=== PATIENT | female | born 1960 | race Caucasian/White ===

== ENCOUNTER 2021-05-15 08:29 | Outpatient (REF) | payer BC, SELFPAY ==
--- NOTE | ~2021-05-15 | MR_ITS ---
MR CERVICAL SPINE WITHOUT CONTRAST CLINICAL INFORMATION: Spinal stenosis. COMPARISON: None available. TECHNIQUE: MRI of the cervical spine was obtained using routine sequences without contrast. FINDINGS: There is a partially imaged leftward convex scoliotic curvature of the thoracic spine. Cervical alignment is maintained. Vertebral body heights are preserved. There is mild to moderate disc volume loss at C4-C5 and C6-C7. Modic type I endplate signal changes at C4-C5. There is bone marrow edema within the left C3 and C4 facets that is most likely degenerative or inflammatory. There is no additional bone marrow edema. There are no acute fractures. Craniocervical junction is unremarkable. Posterior fossa is obscured by the saturation band. Cervical arterial flow voids are maintained. No significant extraspinal soft tissue findings. No cord signal changes. C2-C3: Disc contour normal. No central canal stenosis and no foraminal stenosis. C3-C4: Advanced uncovertebral joint hypertrophy and hypertrophic facet arthropathy result in moderate left-sided foraminal stenosis. No central canal and no right foraminal stenosis. C4-C5: Advanced uncovertebral joint hypertrophy and hypertrophic facet arthropathy result in severe right-sided foraminal stenosis. No central canal and no left foraminal stenosis. C5-C6: Disc osteophyte mildly narrows the central canal. Advanced uncovertebral joint hypertrophy and hypertrophic facet arthropathy result in moderate right-sided foraminal stenosis and mild left-sided foraminal encroachment. C6-C7: Advanced uncovertebral joint hypertrophy and hypertrophic facet arthropathy result in severe bilateral foraminal stenosis. C7-T1: Disc contour normal. No central canal stenosis and no foraminal stenosis. Small shallow central disc protrusion at T2-T3 mildly narrows the central canal and a small inferiorly migrating central disc extrusion at T4-T5 mildly indents the ventral thecal sac. MR/MR cervical spine wo con IMPRESSION: Multilevel cervical spondylosis with advanced spondylitic changes resulting in moderate left C3-C4, severe right C4-C5, moderate right C5-C6, and severe bilateral C6-C7 foraminal stenosis. There is no severe central canal stenosis within the cervical spine. Bone marrow edema within the left C3 and C4 facets is most likely degenerative or inflammatory.
== END 2021-05-15 08:30 | disposition home or self-care (01) ==
LOC: HO.MRI 08:29
PROVIDERS: PCP Internal Medicine; Visit Provider Psychiatry & Neurology Neurology
DX: M48.02 Spinal stenosis, cervical region (principal)
CPT/HCPCS: 72141

== ENCOUNTER 2022-12-17 14:18 | Outpatient (AMB) | payer OTHER, SELFPAY ==
--- NOTE | 2022-12-17 14:46 | MHC.OFFVIS ---
Intake Vital Signs 12/17/22 14:50 Height 5 ft 6 in Weight 143 lb 4 oz BMI 23.1 BP 122/80 Blood Pressure Location Rt brachial Position Sitting Respiration 16 Pulse 82 Pulse Source Pulse Oximeter Pulse Oximetry (%) 93 Oxygen Delivery Method Room Air Intake Visit Reasons: ENP-Poss TIA,Neuropathy,Chr numb-confirmed Intake Note: Pt presents to the office for new patient evaluation s/p TIA on 07/15/22. She reports he had and episode where she went entirely numb on the left side of the body, tingling of her fingertips within 4 hours after receiving her Covid booster shot. She denies any pain. [employer] Required: No Allergies fentanyl Allergy (Severe, Verified 12/17/22 14:56) Vomiting amoxicillin Allergy (Intermediate, Verified 12/17/22 14:56) Hives erythromycin base Allergy (Intermediate, Verified 12/17/22 14:56) Hives Medication List - Last Reconciled 12/17/22 by Unique Randall MD amlodipine 5 mg PO DAILY atorvastatin 80 mg PO QPM bupropion HCl 150 mg PO DAILY dapagliflozin propanediol (Farxiga) 10 mg PO DAILY lorazepam 1 mg PO DAILY PRN metoprolol succinate ER 50 mg PO DAILY nitrofurantoin monohyd/m-cryst 100 mg (Macrobid) 100 mg PO BID HPI HPI Comments History of Present Illness Details 62y/o female comes for evaluation of left sided numbness. 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 She had her Moderna COVID Booster April of 2021 and in 4 hrs she started having numbness and tingling in her left fingers and spread to her her whole left UE. she saw a neurologist and did not have a diagnosis .Now she has numbness in her left UE and her left leg.she denied pain but has some tingling.No back pain, no weakness, no urinary or bowel issues. When the symptoms started in the first 3 weeks she had 3 episodes of sharp pain from leg to her whole spine. SHe has gait issues in AM and late in the day. she uses a cane and has had falls.SHe syas her legs give out. after long hikes she has left leg weakness , she had a possible TIA in June 2022 - she had vertigo and right sided weakness - 1-2 hrs.SHe wnet to ehr her PCP the day [facility] Medical History (Updated 12/17/22 @ 15:33 by Unique Randall MD) Lumbar spondylosis Syrinx of spinal cord Numbness and tingling of left arm and leg HTN (hypertension) Hyperlipidemia Seasonal affective disorder IBS (irritable bowel syndrome) Cholelithiasis CAD (coronary artery disease) Pacemaker Surgical History Previous section Hx of cholecystectomy H/O total hysterectomy H/O heart artery stent Family History Unknown No problems noted. Social History Household Members: Spouse Housing: House Alcohol intake: current Alcohol intake frequency: holidays/special occasions only Cigarette Packs Per Day: 10 Years Smoked: 20 Substance Use Type: Marijuana Substance Use Frequency: Daily Review of Systems Const Reports weakness Musc Reports back pain, Reports arthralgias, Reports numbness and Reports tingling Neuro Reports numbness, Reports tingling and Reports weakness Psych Reports depression Physical Exam Vital Signs: Last Vital Signs Pulse 82 12/17/22 14:50 Resp 16 12/17/22 14:50 BP 122/80 12/17/22 14:50 Pulse Ox 93 12/17/22 14:50 Oxygen Delivery Method Room Air 12/17/22 14:50 BMI result Body Mass Index 23.1 Const General: cooperative, healthy appearing, comfortable and no acute distress Nutritional Appearance: average body habitus Orientation/consciousness: patient oriented x3 Eyes Pupils: Equal, round and reactive pupils present Neuro Other: decreased temperature , pain in left trunk UE and LE General: patient oriented x3, gait normal, tone normal, moves all extremities and no focal motor deficits Cranial nerves: Yes Facial sensation intact/muscles of mastication intact, Yes Equal, round and reactive pupils present, Yes Bilaterally intact EOM present, Yes Nystagmus not present, Yes Normal facial strength present, Yes Midline tongue present and Yes Symmetric palate elevation present Cognition (Neuro): normal cognition Gait exam (Neuro): Normal gait present Deep tendon reflexes (DTR's): Right triceps reflex intensity grade: 1+, Left triceps reflex intensity grade: 1+, Rt Biceps (C5, C6): 1+, Left biceps reflex intensity grade: 1+, Right brachioradialis reflex intensity grade: 1+, Left brachioradialis reflex intensity grade: 1+, Right patellar reflex intensity grade: 1+ and Left patellar reflex intensity grade: 1+ Coordination: [id number] test normal Assessment & Plan Assessment & Plan (1) Numbness and tingling of left arm and leg: Code(s): R20.0 - Anesthesia of skin; R20.2 - Paresthesia of skin (2) Syrinx of spinal cord: Code(s): G95.0 - Syringomyelia and syringobulbia (3) Lumbar spondylosis: Code(s): M47.816 - Spondylosis without myelopathy or radiculopathy, lumbar region Plan I will evaluate her with C spine and [facility] MRI to evaluate for syrinx , ? myelopathy Will consider EMG .NCS during her next visit. Orders: Orders CT cervical spine wo/w IV con Today G95.0 - Syringomyelia and syringobulbia, R20.0 - Anesthesia of skin, R20.2 - Paresthesia of skin CT thoracic spine wo/w IV con Today G95.0 - Syringomyelia and syringobulbia, R20.0 - Anesthesia of skin, R20.2 - Paresthesia of skin Coding Level of Care Code New Pt Level 4 (31806) Diagnoses Numbness and tingling of left arm and leg R20.0; R20.2 Syrinx of spinal cord G95.0 Lumbar spondylosis M47.816
[2022-12-17 14:50] VITALS: BP 122/80; PULSE 82; RESP 16; O2SAT 93; BMI 23.1
== END 2022-12-17 15:44 | disposition home or self-care (01) ==
PROVIDERS: PCP Internal Medicine; Visit Provider Psychiatry & Neurology Neurology
DX: R20.0 Anesthesia of skin (principal); R20.2 Paresthesia of skin; G95.0 Syringomyelia and syringobulbia; M47.816 Spondylosis without myelopathy or radiculopathy, lumbar region
CPT/HCPCS: 99204

== ENCOUNTER → 2022-12-17 14:18 | Outpatient (BNVA) | payer OTHER, SELFPAY | PROVIDERS: PCP Internal Medicine; Visit Provider Psychiatry & Neurology Neurology ==

== ENCOUNTER 2023-02-05 07:42 | Outpatient (REF) | payer OTHER, SELFPAY ==
--- NOTE | ~2023-02-05 | CT_ITS ---
EXAMINATION: CT CERVICAL SPINE WITHOUT AND WITH IV CONTRAST CT THORACIC SPINE WITHOUT AND WITH IV CONTRAST INDICATION: Syringomyelia and syringobulbia COMPARISON: MRI cervical spine on 05/15/2021. TECHNIQUE: Multidetector CT acquisitions of the cervical and thoracic spine before and after administration of 85 mL Omnipaque 350. Multiplanar reformats were acquired and utilized for image interpretation. This CT examination was performed using dose optimization techniques as appropriate, variously including the following: *Automated exposure control *Adjustment of mA and/or kV according to patient size (this includes techniques or standardized protocols for targeted exams where dose is matched to indication/reason for exam; i.e. extremities or head) *Use of iterative reconstruction technique FINDINGS: CERVICAL SPINE: The visualized posterior fossa is unremarkable. Straightening of the normal cervical lordosis. Grade 1 anterolisthesis at C3-C4. Mild retrolisthesis at C4-C5 and to a lesser extent C5-C6. No acute fracture or listhesis. The vertebral body heights are preserved. Moderate disc height loss at C4-C5 and C6-C7. C2-C3: No significant spinal canal or neural foraminal narrowing. C3-C4: Disc osteophyte complex and bilateral facet arthrosis. No significant spinal canal or neural foraminal narrowing. C4-C5: Disc osteophyte complex, bilateral uncovertebral hypertrophy, and bilateral facet arthrosis. No significant spinal canal stenosis. Severe right neural foraminal narrowing. C5-C6: Disc osteophyte complex, bilateral uncovertebral hypertrophy, and bilateral facet arthrosis. No significant spinal canal stenosis. Moderate right and mild left neural foraminal narrowing. C6-C7: Disc osteophyte complex with superimposed central disc protrusion. Bilateral uncovertebral hypertrophy and bilateral facet arthrosis. Mild spinal canal stenosis. Severe right greater than left neural foraminal narrowing. C7-T1: No significant spinal canal or neural foraminal narrowing. THORACIC SPINE: Mild levocurvature of the thoracolumbar junction. Exaggeration of the normal thoracic kyphosis. Grade 1 anterolisthesis at T3-T4, T4-T5, and T5-T6. Mild retrolisthesis at T12-L1. No acute fracture or listhesis. The vertebral body heights are preserved. Multilevel disc height loss. Vacuum disc phenomenon at T6-T7 through L1-L2. There is partially imaged diffuse sclerosis of the opposing L1 and L2 endplates likely representing degenerative endplate changes. Multilevel endplate osteophytosis. There are multiple disc bulges throughout the thoracic spine without definitive evidence of significant spinal canal stenosis. The paravertebral soft tissues are unremarkable. Dependent bibasilar atelectasis. Right renal cyst. CT/CT thoracic spine wo/w IV con IMPRESSION: Please note that MRI is more sensitive for detection/diagnosis of syringomyelia and syringobulbia as clinically questioned. Multilevel cervical and thoracic spondylosis as detailed above without significant spinal canal stenosis. Cervical neural foraminal narrowing is worst and severe at C4-C5 on the right. Recommend MRI spine without contrast for in depth evaluation of degree of degenerative changes as well as cord abnormality.
[2023-02-05] MEDS: iohexoL 350 MG/ML 100 ML INFUS..BTL IV (08:49)
== END 2023-02-05 07:43 | disposition home or self-care (01) ==
LOC: HO.CT 07:42
PROVIDERS: PCP Internal Medicine; Visit Provider Psychiatry & Neurology Neurology
DX: G95.0 Syringomyelia and syringobulbia (principal); R20.0 Anesthesia of skin; R20.2 Paresthesia of skin
CPT/HCPCS: 72127; 72130; Q9967

== ENCOUNTER 2023-02-15 09:23 | Outpatient (AMB) | payer OTHER, SELFPAY ==
--- NOTE | 2023-02-15 09:39 | A.OFFVIS_ITS ---
Intake Vital Signs 02/15/23 09:41 Height 5 ft 6 in Weight 144 lb 8 oz BMI 23.3 BP 126/70 Blood Pressure Location Lt brachial Position Sitting Respiration 16 Pulse 76 Pulse Source Palpation Intake Visit Reasons: Poss TIA,Neuropathy,Chr numb - LVM Intake Note: Pt is here for follow up of lumbar spondylosis. House [employer] Required: No Allergies fentanyl Allergy (Severe, Verified 02/15/23 09:40) Vomiting amoxicillin Allergy (Intermediate, Verified 02/15/23 09:40) Hives erythromycin base Allergy (Intermediate, Verified 02/15/23 09:40) Hives HPI HPI Comments History of Present Illness Details 62 y/o female comes for follow up of lef t sided numbness. She had her Moderna COVID Booster April of 2021 and in 4 hrs she started having numbness and tingling in her left fingers and spread to her her whole left UE. Now she has numbness in her left UE and her left leg. She denied pain but has some tingling. 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 Cervical and thoraic spine CT result reviewed. Multilevel cervical and thoracic spondylosis as detailed above without significant spinal canal stenosis. Cervical neural foraminal narrowing is worst and severe at C4-C5 on the right. Recommend MRI spine without contrast for in depth evaluation of degree of degenerative changes as well as cord abnormality. Cervical MRI in 05/16 result was Multilevel cervical spondylosis with advanced spondylitic changes resulting in moderate left C3-C4, severe right C4-C5, moderate right C5-C6, and severe bilateral C6-C7 foraminal stenosis. There is no severe central canal stenosis within the cervical spine. Bone marrow edema within the left C3 and C4 facets is most likely degenerative or inflammatory. Pt had a possible TIA in June 2022 - she had vertigo and right sided weakness - 1-2 hrs. Pt still smokes half pack of cigarets a day. [facility] Medical History (Updated 12/17/22 @ 15:33 by Unique Randall MD) Lumbar spondylosis Syrinx of spinal cord Numbness and tingling of left arm and leg HTN (hypertension) Hyperlipidemia Seasonal affective disorder IBS (irritable bowel syndrome) Cholelithiasis CAD (coronary artery disease) Pacemaker Surgical History Previous section Hx of cholecystectomy H/O total hysterectomy H/O heart artery stent Family History Unknown No problems noted. Social History Household Members: Spouse Housing: House Alcohol intake: current Alcohol intake frequency: holidays/special occasions only Cigarette Packs Per Day: 10 Years Smoked: 20 Substance Use Type: Marijuana Review of Systems Const All systems reviewed & are unremarkable except as noted in HPI and below Physical Exam Vital Signs: Last Vital Signs Pulse 76 02/15/23 09:41 Resp 16 02/15/23 09:41 BP 126/70 02/15/23 09:41 BMI result Body Mass Index 23.3 Const General: cooperative, healthy appearing, comfortable and no acute distress Nutritional Appearance: average body habitus Orientation/consciousness: patient oriented x3 Eyes Pupils: Equal, round and reactive pupils present Neuro Other: decreased temperature , pain in left trunk UE and LE General: patient oriented x3, gait normal, tone normal, moves all extremities and no focal motor deficits Cranial nerves: Yes Facial sensation intact/muscles of mastication intact, Yes Equal, round and reactive pupils present, Yes Bilaterally intact EOM present, Yes Nystagmus not present, Yes Normal facial strength present, Yes Midline tongue present and Yes Symmetric palate elevation present Cognition (Neuro): normal cognition Gait exam (Neuro): Normal gait present Deep tendon reflexes (DTR's): Right triceps reflex intensity grade: 1+, Left triceps reflex intensity grade: 1+, Rt Biceps (C5, C6): 1+, Left biceps reflex intensity grade: 1+, Right brachioradialis reflex intensity grade: 1+, Left brachioradialis reflex intensity grade: 1+, Right patellar reflex intensity grade: 1+ and Left patellar reflex intensity grade: 1+ Coordination: [id number] test normal Assessment & Plan Assessment & Plan (1) Numbness and tingling of left arm and leg: Code(s): R20.0 - Anesthesia of skin; R20.2 - Paresthesia of skin (2) Syrinx of spinal cord: Code(s): G95.0 - Syringomyelia and syringobulbia (3) Lumbar spondylosis: Code(s): M47.816 - Spondylosis without myelopathy or radiculopathy, lumbar region Plan Pt is not interested in EMG at this time. Advised patient to reduce smoking. Advised patient to try Nirvive supplement for numbness. Will consider EMG .NCS during her next visit. Coding Level of Care Code Est Pt Level 4 (64106) Diagnoses Numbness and tingling of left arm and leg R20.0; R20.2 Syrinx of spinal cord G95.0 Lumbar spondylosis M47.816
[2023-02-15 09:41] VITALS: BP 126/70; PULSE 76; RESP 16; BMI 23.3
== END 2023-02-15 10:00 | disposition home or self-care (01) ==
PROVIDERS: PCP Internal Medicine; Visit Provider Nurse Practitioner Family
DX: R20.0 Anesthesia of skin (principal); R20.2 Paresthesia of skin; G95.0 Syringomyelia and syringobulbia; M47.816 Spondylosis without myelopathy or radiculopathy, lumbar region
CPT/HCPCS: 99214

== ENCOUNTER → 2023-02-15 09:23 | Outpatient (BNVA) | payer OTHER, SELFPAY | PROVIDERS: PCP Internal Medicine; Visit Provider Nurse Practitioner Family | DX: G95.0 Syringomyelia and syringobulbia (principal); R20.0 Anesthesia of skin; R20.2 Paresthesia of skin; M47.816 Spondylosis without myelopathy or radiculopathy, lumbar region ==